=== PATIENT | female | born 1965 | race Caucasian/White ===

== ENCOUNTER 2024-07-02 18:20 | Emergency (ER) | payer OTHER, SELFPAY ==
[2024-07-02 18:24] VITALS: BP 136/74
--- NOTE | 2024-07-02 18:53 | ED.GENMED ---
History of Present Illness
General
Chief Complaint: Musculo-Skeletal Complaint
Source: patient
Time Seen by Provider: 07/02/24 18:35
History of Present Illness
History of Present Illness:
59-year-old female presenting to the emergency department for evaluation of an accidental trip and fall where she injured her bilateral knees while she was leaving the hospital. Patient was here visiting her who had surgery yesterday
evening. She states pain mostly to both knees but was still able to ambulate following the fall. Denies any other injuries.
Past History
Past History
ED Past Medical History: Hypercholesterolemia and Other
ED Past Surgical History: Gynecological and Other
Social History
Tobacco: Non-smoker
Alcohol: None
Drug: None
Personal:
Living: with family
Review of Systems
Review of Systems
All Other Systems: ROS reviewed and negative except as documented in HPI and ROS
Phy Exam
Physical Exam
Physical Exam:
GENERAL: Alert , in no apparent distress
EYE: conjunctiva clear
Head: Normocephalic atraumatic
NECK: Supple,
ENT: mmm.
LUNGS: no acute respiratory distress
NEUROLOGICAL: Alert and oriented
SKIN: Warm and dry, skin intact.
MUSCULOSKELETAL: Left lower extremity: No obvious deformity, erythema, edema, ecchymosis, abrasions or lacerations. No focal areas of bony tenderness to the knee. Patient allows for full range of motion. Right lower extremity: No obvious
deformity, erythema, ecchymosis, abrasions or lacerations. Mild soft tissue swelling anteriorly but patient allows for full range of motion. Both extremities are warm well-perfused.
PSYCH: Normal and appropriate interaction.
Scores
Heart Failure Risk
Heart Failure Risk Score: Not Applicable
Heart Score for Chest Pain Patients
STEMI patient?: Not applicable
Withdrawal Assessment of Alcohol
Withdrawal Assessment Completed?: Not applicable
Course
Orders/Labs/Results
Orders:
Orders
07/02/24 18:26
CR Knee- Right 4 Or More View* Urgent
Comment:
Reason For Exam: fall
Knee, Left 4 or More Views [CR Knee - Left 4 Or More View*] Urgent
Comment:
Reason For Exam: fall
Vital Signs
Initial and Last Documented VS:
Initial Vital Signs
Temp Pulse Resp BP Pulse Ox
98.7 F 70 16 136/74 98
07/02/24 18:24 07/02/24 18:24 07/02/24 18:24 07/02/24 18:24 07/02/24 18:24
Last Documented Vital Signs
Temp Pulse Resp BP Pulse Ox
98.7 F 75 17 148/80 96
07/02/24 18:24 07/02/24 19:11 07/02/24 19:11 07/02/24 19:11 07/02/24 19:11
MDM/Problems Addressed
Differential Diagnosis Includes:
Contusion, fracture, ligamentous/meniscal injury
MDM/Problems Addressed:
59-year-old female presenting to the emergency department for evaluation of an accidental slip and fall after slipping on some water causing her to land on both knees. X-rays performed showed no acute fracture. There is mild degenerative changes.
Advised NSAIDs/Tylenol as needed, ice and elevation. Patient is otherwise stable for discharge home.
*Radiology
Radiology exam reviewed: preliminary read by ED provider (No acute fracture, mild degenerative changes)
*Pulse Oximetry
Patient hypoxic: no
*Critical Care Note
Total Time (30-74mins, 75-104mins- exclusive of procedures): Not Applicable
ED Attending Note
-
Portions of this chart may have been created with voice recognition software.� Occasional wrong word or��sound alike� substitutions may have occurred due to the inherent limitations of voice recognition software.
Discharge Plan
Departure
Patient Disposition: Home (Routine Discharge)
Date of Disposition: 07/02/24
Time of Disposition: 18:54
Patient with high blood pressure during this ER visit?: No
Discharge Problem:
Accidental fall, Contusion of knee, left, Contusion of knee, right
Instructions: Contusion (DC)
Prescriptions:
No Action
No Current Medications
hydrocodone-acetaminophen [Vicodin] 1 EACH tablet
1 ea PO Q4HPRN PRN (Reason: pain) Qty: 15 0RF
Referrals:
Francesca Bolton MD [Family Provider] -
Interventions
Interventions:
*Risk Screen - Suicide Last Done: 07/02/24 18:24
*General Assessment Last Done: 07/02/24 18:24
*Neglect/Abuse Screening Last Done: 07/02/24 18:24
*Nursing Disposition Last Done: 07/02/24 19:15
ED-Musculoskeletal Assessment Last Done: 07/02/24 18:59
Discharge Date and Time
Print Language: AMHARIC
[2024-07-02 19:11] VITALS: BP 148/80
== END 2024-07-02 19:16 | disposition home or self-care (01) ==
LOC: EMR 18:20
PROVIDERS: EMERGENCY PHYSICIAN Emergency Medicine; FAMILY PHYSICIAN Family Medicine
DX: S80.01XA Contusion of right knee, initial encounter (principal); S80.02XA Contusion of left knee, initial encounter; W18.30XA Fall on same level, unspecified, initial encounter; E78.00 Pure hypercholesterolemia, unspecified
CPT/HCPCS: 99283; 73564

== ENCOUNTER → 2024-08-18 07:50 | Outpatient (REF) | payer OTHER, SELFPAY | LOC: HWWDC 07:50 | PROVIDERS: ATTENDING PHYSICIAN Physician Assistant | DX: Z12.31 Encounter for screening mammogram for malignant neoplasm of breast (principal) | CPT/HCPCS: 77063; 77067 ==

== ENCOUNTER → 2025-03-18 14:50 | Outpatient (REF) | payer OTHER, SELFPAY | LOC: RAD 14:50 | PROVIDERS: ATTENDING PHYSICIAN Nurse Practitioner Family; FAMILY PHYSICIAN Physician Assistant | DX: R10.9 Unspecified abdominal pain (principal) | CPT/HCPCS: 74177; Q9967 ==